=== PATIENT | female | born 1930 | race Caucasian/White ===

== ENCOUNTER → 2016-06-27 | Outpatient (CLI) | payer MEDICARE ==
[~2016-06-27] MED LIST: ASPIR 8181 MG PO; BENZONATATE200 MG PO; CALCIUM500 M1 PO; CHERATUSSIN AC473 ML PO; CLARITIN10 M2 PO; COLACE-DPS100 MG PO; ENULOSE10 GM/15 M PO; ESBRIET267 MG PO; FISH OIL300 MG PO; FLEXERIL-DPS10 MG PO; GLUCOSAMINE S1000 M2 PO; GLUCOSAMINE S1000 MG PO; KEFLEX-DPS500 MG PO; MELOXICAM7.5 MG PO; MUCINEX D ER 61 EACH PO; NORVASC DPS10 MG PO; PRILOSEC DPS20 MG PO; PROAIR HFA8.5 GM IH; PSYLLIUM PO; REMERON15 M1 PO; ROBITUSSIN AC D30 ML PO; RYTHMOL150 MG PO; SIMVASTATIN20 MG PO; VIACTIV SOFT C1 EACH PO; VITAMIN D5000 UNIT PO; XARELTO15 MG PO; [UNRECOGNIZED DRUG - OTHER] PO
== END | disposition home or self-care (01) ==
LOC: RESC 06-26 13:51 → RAD.S 10:16
DX: J84.112 Idiopathic pulmonary fibrosis (principal); R91.8 Other nonspecific abnormal finding of lung field; J43.9 Emphysema, unspecified